=== PATIENT | female | born 1985 | race Caucasian/White ===

== ENCOUNTER 2016-11-20 16:49 | Emergency (ER) | payer BC ==
[2016-11-20 17:36] VITALS: BP 89/52
--- NOTE | 2016-11-20 18:41 | UC ---
Throat Pain/Nasal Fermín HPI - HPI Summary HPI Summary: 31 female presents complaining of body aches, headache, sore throat, neck swelling, fever and nasal congestion that started approximately 2 days ago. Patient states her symptoms started to really worsen today. She has had sinus pressure and nasal congestion on and off for the past month. She denies any sinus pressure today. She admits to having swollen glands. She denies any difficulty breathing, chest pain, nausea, vomiting, abdominal pain, constipation and diarrhea. She states her ears feel full but no pain. She has not had the flu shot this year. She has been around her son who was recently diagnosed with a viral syndrome and strep. She took 2 Tylenol earlier today around 3pm and has had some relief but still has a fever. No cough. - History of Current Complaint Chief Complaint: UCRespiratory Stated Complaint: SINUSES Time Seen by Provider: 11/20/16 17:28 Hx Obtained From: Patient Hx Last Menstrual Period: 11/12/16 ?: No Onset/Duration: Sudden Onset, Lasting Days Severity: Moderate Pain Intensity: 6 Pain Scale Used: 0-10 Numeric Cough: Nonproductive Associated Signs & Symptoms: Positive: Dysphagia, Nasal Discharge - Allergies/Home Medications Allergies/Adverse Reactions: Allergies Allergy/AdvReac Type Severity Reaction Status Date / Time No Known Allergies Allergy Verified 11/20/16 17:36 Home Medications: Home Medications Acetaminophen TAB* [Tylenol TAB*] 1,000 mg PO Q6H PRN 11/20/16 [History Confirmed 11/20/16] Tylenol Sinus And Head Cold 2 tab PO ONCE PRN 11/20/16 [History] PMH/Surg Hx/FS Hx/Imm Hx Previously Healthy: Yes - Surgical History Surgical History: None - Family History Known Family History: Positive: None - Social History Alcohol Use: Occasionally Substance Use Type: None Smoking Status (MU): Former Smoker Review of Systems Constitutional: Fever, Chills Skin: Negative Eyes: Negative ENT: Sore Throat, Ear Ache - fullness, Nasal Discharge Respiratory: Cough - very mild intermittent episodes Cardiovascular: Negative Gastrointestinal: Negative Genitourinary: Negative Motor: Negative Neurovascular: Negative Musculoskeletal: Negative, Myalgia - body aches Neurological: Headache Psychological: Negative All Other Systems Reviewed And Are Negative: Yes Physical Exam Triage Information Reviewed: Yes Appearance: No Pain Distress, Well-Nourished, Ill-Appearing Vital Signs: Initial Vital Signs Temp 100.1 F 11/20/16 17:27 Pulse 89 11/20/16 17:27 BP 89/52 11/20/16 17:27 Pulse Ox 99 11/20/16 17:27 temp elevated Vital Signs Reviewed: Yes Eyes: Positive: Conjunctiva Clear ENT: Positive: Hearing grossly normal, Pharyngeal erythema, Nasal congestion, Nasal drainage, TMs normal, Other: - no pain/discomfort upon percussion of sinuses. Negative: Tonsillar swelling, Tonsillar exudate Neck: Positive: Supple, Tenderness @ - while palpating lymph nodes, Enlarged Nodes @ - bilateral cervical lymphadenopathy Respiratory: Positive: Chest non-tender, Lungs clear, Normal breath sounds, No respiratory distress Cardiovascular: Positive: RRR, No Murmur, Pulses Normal, Brisk Capillary Refill Abdomen Description: Positive: Nontender, No Organomegaly, Soft Bowel Sounds: Positive: Present Musculoskeletal Exam: Normal Neurological Exam: Normal Psychological Exam: Normal Skin Exam: Normal Skin: Positive: Other - warm to touch Throat Pain/Nasal Course/Dx - Course Course Of Treatment: influenza and strep cultures obtained. strep was positive. paitent will be treated with amoxicillin for 10 days and told to continue tylenol OTC for fever and aches. - Differential Dx/Diagnosis Differential Diagnosis/HQI/PQRI: Influenza, Laryngitis, Pharyngitis, Sinusitis, URI Provider Diagnoses: Streptococcal Pharyngitis Discharge - Discharge Plan Condition: Stable Disposition: HOME Prescriptions: Amoxicillin CAP* 500 mg PO Q12H #20 cap Fluticasone NASAL SPRAY 50MCG* [Flonase NASAL SPRAY 50MCG*] 2 spray BOTH NARES DAILY #1 btl Patient Education Materials: Strep Throat (ED) Referrals: Landon Mcleod MD [Primary Care Provider] - Additional Instructions: Take medication as prescribed until entire dose is complete. You may continue taking OTC medication to help with symptoms and Tylenol for fever. If symptoms worsen or do not improve please return to or follow up with your primary care provider. Wash hands frequently and drink plenty of fluids. Get plenty of rest. Chloraseptic throat spray will help with sore throat.
== END 2016-11-20 19:34 | disposition home or self-care (01) ==
LOC: UCCORT 16:49
DX: J02.0 Streptococcal pharyngitis (principal); Z87.891 Personal history of nicotine dependence
CPT/HCPCS: 87502; 87651; 99202; G0463

== ENCOUNTER 2018-11-28 08:14 | Emergency (ER) | payer BC ==
[2018-11-28 08:42] VITALS: BP 129/84
--- NOTE | 2018-11-28 09:12 | UC ---
Eye Complaint HPI - HPI Summary HPI Summary: Pt presents with c/o sudden on est of "bleeding " in right eye pain and "blindstops - History of Current Complaint Chief Complaint: UCEye Stated Complaint: RT EYE CONCERN Time Seen by Provider: 11/28/18 08:57 Hx Obtained From: Patient Hx Last Menstrual Period: 11/27/18 ?: No Onset/Duration: Sudden Onset, Lasting Days, Worse Since Timing: Hours Severity Initially: Mild Severity Currently: Moderate Pain Intensity: 4 Location of Injury: Other - no injury Character: Dull - with eye movement Aggravating Factor(s): Blinking, Other - eye movement Alleviating Factor(s): Nothing Associated Signs And Symptoms: Positive: Vision Impairment Right - Risk Factors Penetrating Injury Risk Factor: Negative Globe Rupture Risk Factors: Negative - Allergies/Home Medications Allergies/Adverse Reactions: Allergies Allergy/AdvReac Type Severity Reaction Status Date / Time No Known Allergies Allergy Verified 11/28/18 08:42 PMH/Surg Hx/FS Hx/Imm Hx Previously Healthy: Yes - Surgical History Surgical History: None - Family History Known Family History: Positive: Cardiac Disease - Social History Occupation: Employed Full-time Lives: With Family Alcohol Use: Occasionally Substance Use Type: None Smoking Status (MU): Former Smoker Have You Smoked in the Last Year: No When Did the Patient Quit Smoking/Using Tobacco: 2011 Review of Systems All Other Systems Reviewed And Are Negative: Yes Constitutional: Positive: Negative Skin: Positive: Negative Eyes: Positive: Blurred Vision, Eye Redness ENT: Positive: Negative Respiratory: Positive: Negative Cardiovascular: Positive: Negative Gastrointestinal: Positive: Negative Genitourinary: Positive: Negative Motor: Positive: Negative Neurovascular: Positive: Negative Musculoskeletal: Positive: Negative Neurological: Positive: Negative Psychological: Positive: Negative Is Patient Immunocompromised?: No Physical Exam Triage Information Reviewed: Yes Appearance: Well-Appearing Vital Signs: Initial Vital Signs Temp 98 F 11/28/18 08:32 Pulse 67 11/28/18 08:32 Resp 16 11/28/18 08:32 BP 129/84 11/28/18 08:32 Pulse Ox 100 11/28/18 08:32 Vital Signs Reviewed: Yes Eyes: Positive: Other: - bright red scleritis right inner eye mild redness to left inner eye c/o pain with eye movement and c/o blind "spots" in right eye and left eye ENT Exam: Normal Dental Exam: Normal Neck exam: Normal Respiratory: Positive: No respiratory distress Musculoskeletal Exam: Normal Neurological Exam: Normal Psychological Exam: Normal Skin Exam: Normal Eye Complaint Course/Dx - Course Course Of Treatment: I discussed my findings with Dr. Coy and she agree with my decision tosend pt to Dr. Bedolla for furhte revaluation and testing. due to pt 's c/o blind spots and hx of hypercoaguability disorder pt unsure exact diagnosis. 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 Bedolla office school admissions representative Discharge - Sign-Out/Discharge Documenting (check all that apply): Patient Departure All imaging exams completed and their final reports reviewed: No Studies - Discharge Plan Condition: Stable Disposition: HOME Patient Education Materials: Eye Pain (ED) Referrals: Landon Mcleod MD [Primary Care Provider] - Roshan Bedolla MD [Medical Doctor] - 11/28/18 11:15 am Additional Instructions: Please go directly to Dr. Bedolla's office for an appointment at 11:15 am. - Billing Disposition and Condition Condition: STABLE Disposition: Home - Attestation Statements Provider Attestation: I was available for consult. This patient was seen by the EWELINA. The patient was not presented to, seen by, or examined by me. EK
== END 2018-11-28 09:23 | disposition home or self-care (01) ==
LOC: UCCORT 08:14
DX: H15.003 Unspecified scleritis, bilateral (principal); H15.103 Unspecified episcleritis, bilateral; Z87.891 Personal history of nicotine dependence
CPT/HCPCS: 99212; G0463

== ENCOUNTER 2019-05-24 15:10 | Emergency (ER) | payer BC ==
[2019-05-24 16:17] VITALS: BP 125/80
--- NOTE | 2019-05-24 16:30 | ED ---
Lower Extremity - HPI Summary HPI Summary: 34 yr old female with left knee pain. Onset over the weekend. She dislocated her left patella and put it back in herself. She had her dog when on a leash bump her leg and cause the problem. 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 never seen a specialist for this. This time the knee cap still hurts. She can bear weight and walk ok. No other complaints. - History of Current Complaint Chief Complaint: UCLowerExtremity Stated Complaint: PAIN/SWELLING LEFT KNEE Time Seen by Provider: 05/24/19 16:22 Hx Last Menstrual Period: 05/24/19 Pain Intensity: 3 - Allergies/Home Medications Allergies/Adverse Reactions: Allergies Allergy/AdvReac Type Severity Reaction Status Date / Time No Known Allergies Allergy Verified 05/24/19 16:11 PMH/Surg Hx/FS Hx/Imm Hx Respiratory History: Reports: Hx Pulmonary Embolism Infectious Disease History: No Infectious Disease History: Denies: Traveled Outside the [place] in Last 30 Days - Family History Known Family History: Positive: None, Cardiac Disease - Social History Occupation: Employed Full-time Alcohol Use: Occasionally Substance Use Type: Reports: None Smoking Status (MU): Former Smoker Have You Smoked in the Last Year: No Review of Systems Constitutional: Negative Positive: Other - left patellar pain All Other Systems Reviewed And Are Negative: Yes Physical Exam Triage Information Reviewed: Yes Vital Signs On Initial Exam: Initial Vitals Temp Pulse Resp BP Pulse Ox 97.7 F 67 17 125/80 100 05/24/19 16:11 05/24/19 16:11 05/24/19 16:11 05/24/19 16:11 05/24/19 16:11 Vital Signs Reviewed: Yes Appearance: Positive: Well-Appearing, No Pain Distress Skin: Positive: Warm, Skin Color Reflects Adequate Perfusion Head/Face: Positive: Normal Head/Face Inspection Eyes: Positive: EOMI, MARLON ENT: Positive: Normal ENT inspection Neck: Positive: Nontender Respiratory/Lung Sounds: Positive: Clear to Auscultation, Breath Sounds Present Cardiovascular: Positive: RRR. Negative: Murmur Abdomen Description: Negative: Distended Musculoskeletal: Positive: Strength/ROM Intact, Other - left patella with mild tendernss. No left knee effusion or redness. No popliteal tenderness. No left leg swelling. Neurological: Positive: Sensory/Motor Intact, Alert, Oriented to Person Place, Time, CN Intact II-III, Normal Gait, Speech Normal Psychiatric: Positive: Normal Diagnostics - Vital Signs Vital Signs Temp Pulse Resp BP Pulse Ox 05/24/19 16:11 97.7 F 67 17 125/80 100 - Laboratory Lab Statement: Any lab studies that have been ordered have been reviewed, and results considered in the medical decision making process. Lower Extremity Course/Dx - Course Course Of Treatment: 34 yr old with patella dislocations. Xray OK. DC home. FU with ortho. - Diagnoses Provider Diagnoses: Pain of left patella Discharge - Sign-Out/Discharge Documenting (check all that apply): Patient Departure All imaging exams completed and their final reports reviewed: Yes - Discharge Plan Condition: Good Disposition: HOME Patient Education Materials: Patellar Dislocation (ED) Referrals: Landon Mcleod MD [Primary Care Provider] - 2 Weeks Dahiana Colin MD [Medical Doctor] - 1 Day - Billing Disposition and Condition Condition: GOOD Disposition: Home
--- NOTE | 2019-05-24 18:04 | ED ---
Progress - Progress Note Progress Note: The patient called back, and the nurses asked me to discuss her xrays with her further. Chitra Montez RN put me on the phone with the patient. The patient asked who read the xray, and the name of the radiologist was given her. I reviewed the xray findings again with the patient over the phone. I asked if I could be of any further help or if there were any further questions. This patient had left earlier refusing to sign her discharge instructions. She verbalized to me that she was going to call Dr Bass from Orthopedics to follow up. I made it clear that she will need ortho follow up, exam by ortho and further work up including possible MRI since she has been having an issue with patellar dislocation the past 20 years. The patient was not satisfied with her visit, but verbalized I could do nothing further to assist her this evening. Course/Dx - Course Course Of Treatment: 34 yr old with patella dislocations. Xray OK. DC home. FU with ortho. - Diagnoses Provider Diagnoses: Pain of left patella Discharge - Sign-Out/Discharge Documenting (check all that apply): Patient Departure All imaging exams completed and their final reports reviewed: Yes - Discharge Plan Condition: Good Disposition: HOME Patient Education Materials: Patellar Dislocation (ED) Referrals: Landon Mcleod MD [Primary Care Provider] - 2 Weeks Dahiana Colin MD [Medical Doctor] - 1 Day - Billing Disposition and Condition Condition: GOOD Disposition: Home
== END 2019-05-24 16:58 | disposition home or self-care (01) ==
LOC: UCCORT 15:10
DX: Z87.39 Personal history of other diseases of the musculoskeletal system and connective tissue (principal); M25.562 Pain in left knee; Z87.891 Personal history of nicotine dependence
CPT/HCPCS: 99211; G0463